=== PATIENT | male | born 1990 ===

== ENCOUNTER 2017-09-29 10:47 | Outpatient (CLI) | payer OTHER ==
--- NOTE | 2017-09-29 13:29 | Ultrasound Report ---
RIGHT UPPER QUADRANT ABDOMINAL ULTRASOUND: 09/29/17 10:47:00 CLINICAL: Abdominal pain and elevated liver enzymes. FINDINGS: High-resolution ultrasound demonstrated a normal size liver with marked diffuse increased echogenicity. The echo pattern is heterogeneous and there is suggestion of surface nodularity. No liver mass is identified. Poor visualization of the hepatic and portal vasculature.. Normal gallbladder and bile ducts. The gall bladder wall measures 1.0 mm in thickness. The common bile duct measures 1.0 mm diameter. Limited imaging of the pancreas. The pancreatic body is enlarged and hypoechoic. The pancreatic head and tail are not well imaged. Normal upper abdominal aorta. The right kidney is normal and measures 9.0 x 3.9 x 4.7cm. No ascites or mass. IMPRESSION: 1. Abnormal liver with diffuse increased echogenicity and an echo pattern suspicious for cirrhosis. However, no signs of portal hypertension. 2. Normal biliary tract. 3. Limited imaging of the pancreas but changes in the pancreatic body suggest possible acute pancreatitis. No pancreatic pseudocyst is identified.
== END 2017-09-29 10:48 | disposition home or self-care (01) ==
LOC: SPVWC 10:47
PROVIDERS: ATTEND Family Medicine
DX: R74.8 Abnormal levels of other serum enzymes (principal); R10.13 Epigastric pain
CPT/HCPCS: 76705